=== PATIENT | male | born 1970 | race Caucasian/White ===

== ENCOUNTER → 2017-12-22 | Outpatient (CLI) | payer OTHER | LOC: FIMAGING 14:27 | PROVIDERS: ATTEND Internal Medicine | DX: M51.36 Other intervertebral disc degeneration, lumbar region (principal); M53.3 Sacrococcygeal disorders, not elsewhere classified ==

== ENCOUNTER 2018-12-25 02:21 | Inpatient (IN) | payer OTHER ==
[2018-12-25] MEDS ORDERED: NS 1,000 ML IV ONE (02:26)
[2018-12-25 03:04] LABS: PLATELET COUNT 103 10^3/uL (150-400)
[2018-12-25 03:16] LABS: INR 4.71 (0.83-1.16); PROTIME(PATIENT) 41.8 SEC (12.0-15.0)
--- NOTE | 2018-12-25 03:28 | EDPHY ---
H & P Stated Complaint: Seizure Time Seen by Provider: 12/25/18 02:25 HPI/ROS: HPI The patient presents with seizure which occurred just prior to arrival. The patient had seizure activity which was initially witnessed by his who called 911. He then had a 2nd seizure when EMS arrived. He was treated with Versed for this which improved his seizure. He has no prior history of seizure. These seizures appeared to be tonic clonic, lasting for several minutes. The patient had a fall earlier in the day in which he tripped and fell and injured his left shoulder. 911 was called, however the patient declined transport to the ER. He got into bed and since then has been having some back pains which he describes throughout his back. He says he is a daily drinker drinking 6 large shots of whiskey every day. His last drink was last night at 10:00 p.m.. REVIEW OF SYSTEMS 10 systems were reviewed and negative with the exception of the elements mentioned in the history of present illness. 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 PHYSICAL General Appearance: Tired appearing Eyes: Pupils equal and round, scleral icterus is present ENT, Mouth: Mucous membranes dry, gingiva are pale Respiratory: There are no retractions, lungs are clear to auscultation Cardiovascular: Tachycardic rate and regular rhythm Gastrointestinal: Abdomen is soft and non-tender, no masses, bowel sounds normal, multiple areas of excoriation throughout his abdomen Neurological: A&O, moves all extremities, no tongue wag or hand tremor Skin: Warm and dry, jaundiced, there are ecchymoses throughout his body most prominently on his anterior left shoulder Musculoskeletal: Neck is supple non tender Extremities: symmetrical, full range of motion Psychiatric: Patient is oriented X 3, there is no agitation Source: Patient, Family, EMS Exam Limitations: Clinical condition - Personal History Current Tetanus/Diphtheria Vaccine: Unsure Current Tetanus Diphtheria and Acellular Pertussis (TDAP): Unsure - Medical/Surgical History Hx Asthma: No Hx Chronic Respiratory Disease: No Hx Diabetes: No Hx Cardiac Disease: No Hx Renal Disease: No Hx Cirrhosis: No Hx Alcoholism: No Hx HIV/AIDS: No Hx Splenectomy or Spleen Trauma: No Other PMH: htn, depression - Social History Smoking Status: Current every day smoker Constitutional: Initial Vital Signs Temperature (C) 34.3 C L 12/25/18 02:25 Heart Rate 119 H 12/25/18 02:25 Respiratory Rate 40 H 12/25/18 02:25 Blood Pressure 80/59 L 12/25/18 02:25 O2 Sat (%) 99 12/25/18 02:25 O2 Delivery Mode Room Air Allergies/Adverse Reactions: No Known Allergies Allergy (Unverified 12/25/18 02:24) Home Medications: Medication Instructions Recorded Lisinopril 12/25/18 Prozac 20 MG (*) 12/25/18 Medical Decision Making - Diagnostics EKG Interpretation: EKG: Complete interpretation has been separately recorded in the [facility] archive. Summary impression: Sinus tachycardia with QT prolongation Imaging Results: Ultrasound right upper quadrant demonstrates heterogeneous increased hepatic echogenicity suggests hepatic steatosis with nodular surface contour suspicious for cirrhosis, reversal of the portal venous flow and trace ascites suggest portal hypertension, interpreted by direct Radiology. CT head and C-spine without contrast are unremarkable., interpreted by direct Radiology. Differential Diagnosis: 48-year-old man with history of hypertension, alcohol abuse presents from home with witnessed seizure today twice. Given Versed by paramedics with improvement in his seizures. Here, tachycardic, hypotensive, hypothermic, with overt signs of liver failure with jaundice. He does not appear to be in severe alcohol withdrawal at this point, does not have a tremor. I suspect he had an alcohol withdrawal seizure. I suspect his heavy alcohol abuse has but him into fulminant liver failure. Here, he is given IV fluids. Hemoglobin is quite low at 5. This could be related to his liver failure verses GI bleed. I consented him for blood transfusion. Rectal exam revealed light brown stool, not concerning for GI bleed. I suspect he has longstanding alcohol abuse, leading to cirrhosis, causing anemia and when he stopped drinking yesterday he developed alcohol withdrawal seizures. I have consulted with Dr. Florentino of the hospitalist service and we will admit the patient to the Step-Down Unit. I have discussed the diagnosis and treatment plan with the patient and his mother at the bedside. Critical Care Time: CRITICAL CARE Critical care time spent by me, Dr. Matos, exclusively with this patient was 30 minutes, exclusive of PA time and exclusive of procedures. The organ system at risk was cardiac and I gave IV fluids, blood transfusion to prevent worsening of the patients condition. - Data Points Laboratory Results: Laboratory Results 12/25/18 02:30 12/25/18 02:30 12/25/18 12/25/18 12/25/18 03:57 03:00 02:30 WBC RBC Hgb Hct MCV MCH MCHC RDW Plt Count MPV Neut % (Auto) Lymph % (Auto) [place] % (Auto) Eos % (Auto) Baso % (Auto) Nucleat RBC Rel Count Absolute Neuts (auto) Absolute Lymphs (auto) Absolute Monos (auto) Absolute Eos (auto) Absolute Basos (auto) Absolute Nucleated RBC Immature Gran % Immature Gran # Platelet Estimate Polychromasia Oval Macrocytes Echinocytes Smear Review By PT INR APTT Sodium Potassium Chloride Carbon Dioxide Anion Gap BUN Creatinine Estimated GFR Glucose Calcium Magnesium 1.7 mg/dL mg/dL (1.6-2.3) Total Bilirubin Conjugated Bilirubin Unconjugated Bilirubin GGT AST ALT Alkaline Phosphatase Ammonia 112.0 uMOL/L H uMOL/L (9.0-30.0) Total Protein Albumin TSH 12.000 uIU/mL H uIU/mL (0.465-4.680) Ethyl Alcohol Patient ABO/Rh AB POSITIVE Antibody Screen NEGATIVE Crossmatch IS Only See Detail 12/25/18 12/25/18 12/25/18 02:30 02:30 02:30 WBC 12.61 10^3/uL H 10^3/uL (3.80-9.50) RBC 1.45 10^6/uL L 10^6/uL (4.40-6.38) Hgb 5.4 g/dL L* g/dL (13.7-17.5) Hct 17.7 % L* % (40.0-51.0) MCV 122.1 fL H fL (81.5-99.8) MCH 37.2 pg H pg (27.9-34.1) MCHC 30.5 g/dL L g/dL (32.4-36.7) RDW 16.8 % H % (11.5-15.2) Plt Count 103 10^3/uL L 10^3/uL (150-400) MPV 13.4 fL H fL (8.7-11.7) Neut % (Auto) 76.9 % H % (39.3-74.2) Lymph % (Auto) 12.5 % L % (15.0-45.0) [place] % (Auto) 9.3 % % (4.5-13.0) Eos % (Auto) 0.2 % L % (0.6-7.6) Baso % (Auto) 0.1 % L % (0.3-1.7) Nucleat RBC Rel Count 0.5 % H % (0.0-0.2) Absolute Neuts (auto) 9.70 10^3/uL H 10^3/uL (1.70-6.50) Absolute Lymphs (auto) 1.58 10^3/uL 10^3/uL (1.00-3.00) Absolute Monos (auto) 1.17 10^3/uL H 10^3/uL (0.30-0.80) Absolute Eos (auto) 0.02 10^3/uL L 10^3/uL (0.03-0.40) Absolute Basos (auto) 0.01 10^3/uL L 10^3/uL (0.02-0.10) Absolute Nucleated RBC 0.06 10^3/uL H 10^3/uL (0-0.01) Immature Gran % 1.0 % % (0.0-1.1) Immature Gran # 0.13 10^3/uL H 10^3/uL (0.00-0.10) Platelet Estimate DECREASED L (ADEQ) Polychromasia 2+ H Oval Macrocytes 3+ H Echinocytes 2+ H Smear Review By Pending PT 41.8 SEC H SEC (12.0-15.0) INR 4.71 H (0.83-1.16) APTT 44.4 SEC H SEC (23.0-38.0) Sodium 137 mEq/L mEq/L (135-145) Potassium 5.1 mEq/L mEq/L (3.5-5.2) Chloride 104 mEq/L mEq/L (97-110) Carbon Dioxide 7 mEq/l L* mEq/l (22-31) Anion Gap 26 mEq/L H mEq/L (6-14) BUN 16 mg/dL mg/dL (7-23) Creatinine 2.0 mg/dL H mg/dL (0.7-1.3) Estimated GFR 36 Glucose 150 mg/dL H mg/dL (70-100) Calcium 8.0 mg/dL L mg/dL (8.5-10.4) Magnesium Total Bilirubin 9.1 mg/dL H mg/dL (0.1-1.4) Conjugated Bilirubin 3.1 mg/dL H mg/dL (0.0-0.5) Unconjugated Bilirubin 6.0 mg/dL H mg/dL (0.0-1.1) GGT 66 IU/L H IU/L (10-59) AST 149 IU/L H IU/L (17-59) ALT 62 IU/L IU/L (21-72) Alkaline Phosphatase 98 IU/L IU/L (38-126) Ammonia Total Protein 6.2 g/dL L g/dL (6.3-8.2) Albumin 2.4 g/dL L g/dL (3.5-5.0) TSH Ethyl Alcohol < 10 mg/dL mg/dL (0-10) Patient ABO/Rh Antibody Screen Crossmatch IS Only Medications Given: Lorazepam (Ativan Injection) 0 mg IVP Q1H PRN; Protocol PRN Reason: Alcohol Withdrawal w/IV access Stop: 06/23/19 05:32 Last Admin: 12/25/18 06:19 Dose: 2 mg Discontinued Medications Sodium Chloride (Ns) 1,000 mls @ 0 mls/hr IV EDNOW ONE; Wide Open PRN Reason: Protocol Stop: 12/25/18 02:27 Last Admin: 12/25/18 02:33 Dose: 1,000 mls Departure - Departure Disposition: [facility] Inpatient Acute Clinical Impression: Hepatic failure due to alcoholism, Seizure Anemia Qualifiers: Anemia type: unspecified type Qualified Code(s): D64.9 - Anemia, unspecified Condition: Critical
[2018-12-25] MEDS ORDERED: ONDANSETRON 4 MG/2 ML VIAL IVP PRN (04:05)
[2018-12-25] MEDS ORDERED: ONDANSETRON DISINTEGRATING 4 MG TAB PO PRN (04:05)
[2018-12-25] MEDS ORDERED: LORazepam 2 MG/ML INJ IVP PRN (04:05)
[2018-12-25] MEDS ORDERED: PROMETHAZINE HCL 25 MG/ML INJ IVP PRN (04:05)
[2018-12-25] MEDS ORDERED: diphenhydrAMINE 25 MG CAP PO PRN (04:05)
[2018-12-25] MEDS ORDERED: ALBUTEROL 3 ML DEYVIAL IH PRN (04:05)
[2018-12-25] MEDS ORDERED: FLUMAZENIL 0.5 MG/5 ML MDV IVP PRN (05:33)
[2018-12-25] MEDS ORDERED: NS 1,000 ML IV SCH (05:45)
[2018-12-25] MEDS: LORazepam 2 MG/ML INJ IVP PRN ×4 (06:19→10:59)
--- NOTE | 2018-12-25 06:52 | GHP ---
[f rep st] HISTORY AND PHYSICAL DATE OF ADMISSION: 12/25/2018 SOURCE: Patient able to provide history, appears reliable. EMR was reviewed and case discussed with ED provider. CHIEF COMPLAINT: Seizure. HISTORY OF PRESENT ILLNESS: This is a pleasant 48-year-old gentleman with past medical history significant for hypertension, depression, alcohol dependence, who presents to the emergency department today after his called 911 following a witnessed seizure. Patient had tonic-clonic type activity. She is not currently at bedside to supplement details. Case was discussed with ED provider. The patient does have a history of drinking 6 large glasses of whiskey on a daily basis. Last intake was approximately 10 p.m. EMS arrived and patient had a 2nd witnessed seizure. He was given Versed with no subsequent seizure activity. The patient is complaining of acute on chronic back pain. He lists a history of injury. No numbness, tingling. No urinary retention or fecal incontinence. Patient reports that he has been feeling unwell, particularly in the last several days. Yesterday, he spent most of the day lying in bed, which he thinks is exacerbating his back pain. The patient reports that he has been having some shortness of breath with increasing pain. He denies any chest pain, palpitations, lightheadedness. Patient denies any melena or hematochezia. He has not had any abdominal pain. The patient reports he has not noticed any jaundice or scleral icterus. Patient's mother, who is at bedside, notes that she did not appreciate any jaundice until it was pointed out today. REVIEW OF SYSTEMS: GENERAL: Patient denies any fevers, chills, or recent illness until the last several days. He has been noticing fatigued. SKIN: As noted above. Patient did not appreciate any jaundice. RESPIRATORY: Patient denies any shortness of breath or cough. CV: Patient denies any chest pain, palpitations. ABDOMEN: No distention, abdominal pain, diarrhea, melena, hematochezia. : No dysuria or hematuria. MUSCULOSKELETAL: Back pain as noted per HPI. NEURO: Patient denies any numbness, tingling. No headache. No changes in vision. He does wear glasses. PSYCH: Patient without any SI or HI. Remainder 10 systems reviewed and negative, except as noted above. ALLERGIES: No known drug allergies. HOME MEDICATIONS: As listed in EMR, fluoxetine 20 mg and lisinopril. PAST MEDICAL HISTORY: Significant for benign essential hypertension, depression , alcohol dependence, remote history of MRSA. PAST SURGICAL HISTORY: Significant for a leg surgery many years ago. FAMILY HISTORY: Negative for any chronic medical issues, hypertension. SOCIAL HISTORY: Patient is , lives with his and 2 children. 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 CODE STATUS: Full. PHYSICAL EXAMINATION: VITAL SIGNS: Upon arrival to the emergency department, blood pressure is 80/59, heart rate 119, respiratory rate 40, O2 saturation 99% on room air, temperature 34.3. VITAL SIGNS: Current vital signs available: Blood pressure is 106/56, heart rate is 104, respiratory rate 24, O2 sat is 100 % on room air with temperature of 36. GENERAL: No acute distress. Patient is lying quietly in bed awake. His mother is at bedside. Patient does appear chronically ill and older than stated age. He has jaundice. HEAD: Normocephalic. Patient does have some abrasions on his face. He has some dried blood bridge of his nose. EYES: Extraocular muscles are grossly intact. Pupils equal, round, and slightly decreased reactivity to light bilaterally, but symmetric. No scleral icterus or conjunctival injection. Glasses in place. ENT: Mucous membranes appear quite dry and pale. Dentition in fair condition. No nasal discharge. NECK: Supple. Trachea midline. CV: Tachycardic, distant heart sounds limiting exam for murmur. No chest wall tenderness to palpation. RESPIRATORY: Patient with some mild increased work of breathing and use of accessory muscles. He is tachypneic into the 20s, but he is in no acute distress. He is lying quietly in bed. ABDOMEN: Obese, soft , nontender to palpation. No rebound, guarding, or masses appreciated. No hepatomegaly. : No suprapubic tenderness to palpation. No Queen catheter in place. MUSCULOSKELETAL: Patient with back pain and some decreased range of motion movement, but able to turn on his back from the side. NEURO: Grossly nonfocal. No facial drooping. Moves all extremities. Patient without a tremor currently. Sensation is intact to lower extremities bilaterally and symmetric. PSYCH: Patient does appear a little bit anxious. He is awake, alert and interactive. He is otherwise pleasant and cooperative. Thought process, content and questions are appropriate. LABORATORY STUDIES: WBC is 12.61, hemoglobin and hematocrit are 5.4 and 17.7, MCV is 122.0, platelet count is 103, neutrophil percent 76.9, 1% granulocytes. PT is 41.8, INR is 4.71, PTT is 44.4. Sodium is 137, potassium is 4.1, chloride is 104, CO2 is 7, anion gap of 26, BUN is 16, creatinine is 2.0, GFR is 36, glucose is 150, calcium 8.0, magnesium 1.7, total bilirubin is 9.1, conjugated bilirubin 3.1, ALT is 62, AST is 149, GT 266, alkaline phosphatase is 98, ammonia is 112, total protein 6.2, albumin is 2.4. TSH is pending. Ethyl alcohol level is less than 10, negative. EKG was reviewed by myself showing sinus tachycardia in the one-teens. QTc is 554. CT cervical spine, CT head: Preliminary reports are not available, per provider negative. Shoulder imaging reviewed, no acute fractures appreciated, report is still pending. Abdominal ultrasound report is still pending. This is a 48-year-old gentleman with a history of hypertension, depression, alcohol dependence, who presents to the ED following a seizure at home, witnessed. 1. Acute liver failure. MELD score calculated at 39 based on current labs. The patient's Maddrey's Discriminant Function score 132.8 points with poor prognosis at a score of greater than 32. The patient may benefit from addition of steroids; however, at this point, the patient is currently being acutely treated with fluids and transfusion. Plan for repeat labs shortly after the 2nd unit and will reassess. GI consultation in the morning as per day team. Immediate lifelong alcohol cessation was advised. Severity of patient's liver disease as well as involvement of the renal system was briefly discussed with the patient. I had not yet calculated his MELD score to additionally discuss with the patient his increased risk for morbidity mortality at this point. There are plans for followup laboratory studies following administration of his additional IV fluids and transfusion. The patient will be started on CIWA protocol and will receive thiamine, multivitamins and folic acid. symptomatic. The patient is in process of receiving 2 units of PRBCs. Repeat hemoglobin and hematocrit following the 2nd unit has been requested. Coagulopathy due to liver disease. INR is quite elevated, but patient without any evidence of active bleeding at this time. We will check an occult stool. May require additional evaluation by GI during this hospital stay. We will hold off on FFP and no need for platelet transfusion at this point. 2. Hypotension due to hypovolemia and anemia, which has improved after IV fluids and transfusion, which is in process. Patient with a history of hypertension on outpatient basis. 3. Thrombocytopenia in the setting of liver disease. Continue to monitor. No active bleeding as noted above. 4. Acute renal failure, is likely prerenal, may be a component of acute tubular necrosis as patient does have lisinopril on his medication list, but most likely due to hypotension and hypovolemia with decreased perfusion. Continue with treatment plan as noted above and repeat BMP later in the morning. 5. Leukocytosis. No evidence of active bleeding. Patient was without any fevers. Suspect this is due to patient's acute condition with liver disease, anemia, acute renal failure, etc. Will monitor closely. Hold off on antibiotics at this time. 6. Transaminitis and hyperbilirubinemia in setting of acute liver failure. We will continue to monitor. 7. Metabolic acidosis due to above. 8. Hyperglycemia as nonfasting lab. Will continue to monitor. No previous history of issues with blood sugars. 9. Hyperammonemia in setting of liver failure. His mentation is actually doing very well. We will hold off on lactulose for the moment. 10. Hypoalbuminemia due to liver disease. 11. Elevated TSH. We will plan to check a free T4. 12. Fluid/electrolyte/nutrition. IV fluids to continue after PRBCs. Will monitor the patient's fluid status closely. Currently does not appear to be third-spacing and he is quite dry. Electrolytes: Will monitor with repeat BMP following his transfusion. Diet: Cardiac, low-salt. No need for fluid restriction at this time. Patient is dehydrated. By history, no complaint of melena or hematemesis. Will not leave him n.p.o. for now. 13. Prophylaxis. Sequential compression devices as tolerated. Patient with INR greater than 4 at this time. Monitor for any bleeding. No anticoagulation. 14. Code status. Full. DISPOSITION: Patient admitted to inpatient status on SDU for close monitoring in setting of severe anemia, acute liver failure and acute renal insufficiency. /[id number]/MODL MTDD
--- NOTE | 2018-12-25 07:11 | CPEKG ---
Test Reason : OPEN Blood Pressure : / mmHG Vent. Rate : 117 BPM Atrial Rate : 118 BPM P-R Int : 092 ms QRS Dur : 088 ms QT Int : 389 ms P-R-T Axes : 081 069 055 degrees QTc Int : 543 ms Sinus tachycardia Prolonged QT interval Confirmed by Hue Matos ([id number]) on 12/25/2018 7:11:04 AM Referred By: PHYSICIAN ED Confirmed By:Hue Matos
[2018-12-25] MEDS ORDERED: FAMOTIDINE 20 MG/NACL 50 ML IV SCH ×3 (09:00→21:00)
[2018-12-25] MEDS ORDERED: THIAMINE HCL 500 MG in NS 100 ML IV SCH (09:00)
[2018-12-25] MEDS ORDERED: LACTULOSE 20 GM/30 ML UDCUP PO SCH (09:00)
--- NOTE | 2018-12-25 09:33 | HOSPPROG ---
Hospitalist Progress Note Assessment/Plan: 48yo M who had a seizure found to be in liver, kidney and respiratory failure. #Acute liver failure: Suspect alcoholic hepatitis. DF score >140. MELD 39, conferring 52% 3month mortality. No portal/hepatic thrombus on US although limited study. - Methylpred 40mg IV daily, daily LFT/INR - Check acute hep panel, APAP level, anti-smooth muscle Ab, EBV and CMV Abs - Consulted GI #Acute renal failure with hyperkalemia: Worsening despite volume resuscitation. Concern for HRS. - S/p calcium, bicarb, insulin, sodium zirconium - Consulted renal. Temporary dialysis cath placed by surgery this PM. Plan to initiate CRRT as soon as able #Macrocytic anemia: Initially responded to transfusion but dropped again. No e/ o bleeding, BUN low makes variceal bleed less likely. ? hemolysis. No schistos on initial smear makes DIC less likely. - Check LDH, haptoglobin, fibrinogen, retic count - Ordered 2 more units PRBC #Thrombocytopenia: Likely r/t liver. TTP on differential but unlikely with plts >100k. - D/w hematology who will evaluate patient #Acute respiratory failure - Now intubated, pulm managing ventilator and sedation #Acute metabolic encephalopathy: D/t liver failure (ammonia 112). Managing as above. #EtOH abuse: Reportedly was cutting down. MCV 122 indicates otherwise. - CIWA protocol #Hypotension: Suspect due to increase NO from liver failure. - Levophed PRN (has triple lumen) #Seizure: Likely precipitated by etoh withdrawal and liver failure. - Head CT negative #Coagulopathy - Ordered 2 units FFP, 10mg IV vitamin K #Anion gap metabolic acidosis: Due to kidney failure. 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 #H/o hypothyroidism: TSH elevated but in setting of acute illness. Free T4 pending. #PVCs: Followed by Dr Hendrickson. 46k in 24 hours on holter. Prescribed diltiazem but not taking. #Depression/anxiety VTE ppx: SCDs Code: full POA: Dispo: Remain in ICU I spent a total of 60 minutes of critical care time involving this patient. Subjective: Awake but confused. Tachypneic. D/w and brother at bedside. Objective: Vital Signs Temp Pulse Resp BP Pulse Ox 36.5 C 99 32 H 91/50 L 100 12/25/18 09:00 12/25/18 09:00 12/25/18 09:00 12/25/18 09:00 12/25/18 09:00 12/24/18 12/25/18 12/26/18 05:59 05:59 05:59 Intake Total 1525 Balance 1525 PT 41.8 SEC (12.0-15.0) H 12/25/18 02:30 INR 4.71 (0.83-1.16) H 12/25/18 02:30 - Physical Exam Constitutional: no apparent distress Eyes: PERRL, icteric sclera Ears, Nose, Mouth, Throat: dry mucous membranes Cardiovascular: tachycardia, No edema Respiratory: respiratory distress, other (tachypneic) Gastrointestinal: normoactive bowel sounds, soft, non-tender abdomen, no palpable masses, distension Genitourinary: no bladder fullness, no bladder tenderness, no renal bruits Skin: other (jaundiced) Neurologic: other (not oriented) Psychiatric: encephalopathic ICD10 Worksheet Patient Problems: Problems Problem Status Onset Anemia Acute Hepatic failure due to alcoholism Acute Seizure Acute
--- NOTE | 2018-12-25 09:48 | PDMN ---
Medical Necessity Medical necessity: [facility] [place] M570 Liver Disease Complications, A-2 days: 48 yo w/ witnessed seizure in known setting etoh abuse. Eval reveals acute liver and renal fx. Pt is hypotensive SBG 80s, tachy 110s, persistent tachypnea, H/H 5/17 , plt 103, elevated WBC, total bili 9.1, creat 2. MELD score 39, Maddrey's Discriminant Function score 132.8. IVF, transfuse PRBC. CIWA protocol. GI consult. Pt will require>2MN for ongoing management of the above. Admit IP status SDU.
--- NOTE | 2018-12-25 11:42 | GCON ---
[f rep st] CONSULTATION [facility]RL[facility] CAREGIVER CONSULTATION REASON FOR ADMISSION: Seizure, acute alcohol withdrawals, liver failure. HISTORY OF PRESENT ILLNESS: The patient is a 48-year-old white male with a past medical history of h ypertension, depression, and alcoholism. He was brought in after undergoing a seizure. He has a his tory of excessive alcohol use, drinking up to 6 glasses of whiskey per day. He was brought via EMS t o the emergency room and subsequently admitted to the intensive care unit. He is currently on CIWA p rotocol and markedly confused. All history is gleaned from the medical record. Apparently, he lost his job approximately a year ago. The patient's daughter is also been going undergoing some medical issues requiring hospitalization. REVIEW OF SYSTEMS: Ten-point review of systems was attempted, but unable to be performed, secondary to patient's encephalopathy. PAST MEDICAL HISTORY: Significant for hypertension, depression, and a distant history of methicillin -resistant Staph aureus. FAMILY HISTORY: Noncontributory. SOCIAL HISTORY: Again, alcoholism. No history of tobacco use. He is , has good family suppo rt. PHYSICAL EXAM: VITAL SIGNS: Blood pressure 150/57, pulse is 100, respirations 14, temperature 36.5, oxygen saturation 100% on room air. GENERAL: He is a well-developed 48-year-old male who is mildly jaundiced. HEENT: Eyes: PAT, EOMI. Throat exam is deferred. NECK: Supple. No cervical adenopa thy. HEART: Regular rate and rhythm without murmurs, rubs, or gallops. LUNGS: Diminished breath s ounds, but no wheeze. ABDOMEN: Soft, but mildly distended. Bowel sounds are diminished. EXTREMITI ES: No clubbing, cyanosis, or edema. LABORATORY/IMAGING: White count is 12.6, hemoglobin 5.4, hematocrit 17, platelet count is 103. INR is 4.71. Sodium 137, potassium 5.1, chloride 104, CO2 is 7, BUN is 16, creatinine is 2, glucose is 1 50. AST is elevated at 149, ALT is 62. Ammonia level is 112. TSH is elevated at 12. Total bilirub in is 9.1. Abdominal ultrasound shows steatosis of the liver, a small amount of ascites. There is no obstructio n. No gallbladder obstruction or stones present. IMPRESSION: 1. Alcoholism. 2. Acute alcohol withdrawals. 3. Acute liver injury. This is severe with a very high MELD score. 4. Anemia, status post transfusion. 5. Thrombocytopenia. 6. Acute liver injury as seen by an elevated transaminitis. 7. Elevated thyroid-stimulating hormone. 8. Metabolic acidosis, secondary to above. 9. Acute renal failure. This is likely prerenal. RECOMMENDATIONS: 1. Agree with transfusion. 2. Agree with GI consult. 3. Aggressive fluid management. 4. Monitor laboratories closely. 5. Agree with lactulose. 6. Patient is critical. 7. Case discussed with the hospitalist, as well as family. /[id number]/MODL
[2018-12-25] MEDS ORDERED: CALCIUM GLUCONATE 2 GM in D5W 50 ML IV ONE ×2 (12:03→23:00)
[2018-12-25] MEDS ORDERED: [UNRECOGNIZED DRUG - OTHER] IV ONE (12:04)
[2018-12-25] MEDS ORDERED: PROTOCOL MAGNESIUM 1 DOSE IV PRN (12:07)
[2018-12-25] MEDS: SODIUM ZIRCONIUM CYCLOSILICATE 10 GM PACKET PO SCH ×2 (12:12→17:09)
[2018-12-25] MEDS ORDERED: MAGNESIUM SULF 1 GM/DEXTROSE 100 ML IV ONE (12:16)
[2018-12-25] MEDS ORDERED: ALBUMIN 25% 100 ML SOLN IV ONE (12:22)
[2018-12-25] MEDS ORDERED: NA BICARBONATE 50 MEQ/50 ML VIAL IV ONE (12:30)
[2018-12-25] MEDS: ALBUMIN 25% 100 ML IV SCH ×2 (12:52→23:08)
[2018-12-25] MEDS ORDERED: D5W IV SCH (13:00)
[2018-12-25] MEDS ORDERED: METHYLPREDNISOLONE SOD SUCC IV SCH (13:00)
[2018-12-25] MEDS ORDERED: prednisoLONE 15 MG/5 ML ORAL UD LIQ PO SCH (13:00)
[2018-12-25] MEDS ORDERED: INSULIN REGULAR HUMAN 100 UNIT/ML UNIT IVP ONE (13:03)
[2018-12-25] MEDS ORDERED: D50W 25 GM/50 ML SYR IVP ONE (13:03)
[2018-12-25] MEDS ORDERED: ALTEPLASE 2 MG VIAL IVP PRN (13:11)
[2018-12-25] MEDS ORDERED: PHYTONADIONE 10 MG in NS 50 ML IV ONE (13:12)
[2018-12-25] MEDS ORDERED: methylPREDNISolone SOD SUCC 40 MG/ML VIAL IVP SCH (13:15)
[2018-12-25] MEDS: NOREPINEPHRINE BITARTRATE 4 MG in NS 500 ML IV SCH ×2 (13:49→19:45)
[2018-12-25 14:26] LABS: HEPATITIS A ANTIBODY IGM (BCH) NEGATIVE (NEGATIVE); HEPATITIS B CORE AB IGM NEGATIVE (NEGATIVE); HEPATITIS B SURFACE ANTIGEN NEGATIVE (NEGATIVE); HEPATITIS C ANTIBODY TOTAL NEGATIVE (NEGATIVE)
--- NOTE | 2018-12-25 14:42 | SOAPPROG ---
SOAP Progress Note Assessment/Plan: Assessment: Nephrology consult see dictation # [id number] I discussed my recs with hosptialist and ICU Team pager [phone] Plan: 12/25/18 14:42 12/25/18 15:12 Objective: Vital Signs Temp Pulse Resp BP Pulse Ox 36.8 C 119 H 38 H 108/42 L 100 12/25/18 13:00 12/25/18 14:00 12/25/18 14:00 12/25/18 14:00 12/25/18 14:00 12/24/18 12/25/18 12/26/18 05:59 05:59 05:59 Intake Total 1525 Balance 1525 PT 41.8 SEC (12.0-15.0) H 12/25/18 02:30 INR 4.71 (0.83-1.16) H 12/25/18 02:30 ICD10 Worksheet Patient Problems: Problems Problem Status Onset Anemia Acute Hepatic failure due to alcoholism Acute Seizure Acute
[2018-12-25] MEDS ORDERED: MIDAZOLAM 2 MG/2 ML VIAL IVP ONE (14:45)
[2018-12-25] MEDS ORDERED: ROCURONIUM 100 MG/10 ML VIAL IV ONE (14:45)
[2018-12-25] MEDS ORDERED: fentaNYL 100 MCG/2 ML INJ IVP PRN (14:58)
--- NOTE | 2018-12-25 15:18 | ASMTCMCOM ---
CM Note CM Note Notes: Pt is a 48 yo M presents with Hepatic failure, anemia, etoh withdrawl. Pt care discussed in rounds with MD and RN. Pt's is at bedside as well as other family members. Pt is going to OR to get dialysis cath, nephrology consulted and following. CM to follow as pt progresses. Plan: TBD Date Signed: 12/25/2018 03:17 PM Electronically Signed By:LIDYA Verma
[2018-12-25] MEDS ORDERED: ROCURONIUM 100 MG/10 ML VIAL ONE (15:24)
--- NOTE | 2018-12-25 15:24 | GPN ---
[f rep st] PROCEDURE NOTE PROCEDURE: Intubation. INDICATION: Respiratory failure and airway protection. ANESTHESIA: Patient was given Versed 2 mg, rocuronium 0.6 mg/kg. DESCRIPTION OF PROCEDURE: Procedure was performed in the intensive care unit using continuous pulse ox, EKG, and blood pressure monitoring procedure. Via GlideScope, patient was intubated with a #7.5 endotracheal tube and taped at 24 cm at the lip. Tracheal position was confirmed via capnograph. Th e patient tolerated the procedure well. There were no apparent complications. Portable chest x-ray has been called for. /[id number]/MODL
[2018-12-25] MEDS ORDERED: MAGNESIUM SULF 2 GM/WATER 50 ML IV PRN (16:00)
[2018-12-25] MEDS ORDERED: PANTOPRAZOLE SODIUM 40 MG VIAL IVP SCH (16:00)
[2018-12-25] MEDS ORDERED: POTASSIUM Cl (KCl) 50 ML IV PRN (16:00)
[2018-12-25] MEDS ORDERED: SODIUM CITRATE 4% 5 ML in SYRINGE 0 ML DIAL PRN (16:00)
[2018-12-25] MEDS ORDERED: SODIUM PHOS 20 MM in D5W 250 ML IV PRN (16:00)
[2018-12-25] MEDS ORDERED: PRE-DILUTION FILTER SET 100 MISC PRN (16:00)
[2018-12-25] MEDS ORDERED: ACCESSORY DRAIN 1 EA BAG MISC PRN (16:00)
--- NOTE | 2018-12-25 16:24 | GCON ---
[f rep st] CONSULTATION INPATIENT NEPHROLOGY CONSULTATION DATE OF CONSULTATION: 12/25/2018 REFERRING PHYSICIAN: Dakota Kessler MD REASON FOR CONSULTATION: Acute kidney injury. HISTORY OF PRESENT ILLNESS: The patient is a 48-year-old man with a history of hypertension, alcohol abuse, who was admitted to the hospital late last evening with a witnessed seizure at home. He did have a witnessed seizure by EMS on their arrival, and was given Versed. He has since continued to worsen on arrival with increasing somnolence, and he is now being emergently intubated. I have been asked to see the patient for his worsening kidney function. His creatinine on admission was 2, and it is up to 2.9 on last check. He has made very little urine output. He is having significant coagulopathy with an INR of 4.7 and a hemoglobin down to 5.2, low platelets. His potassium is up to 7.0 on his last labs. Currently, he is too confused and on BiPAP and unable to give any history, so most of this is obtained from discussing with his family as well as the ICU team and reviewing his charts. His family denies any known kidney history. They do note that he has been trying to cut back on his alcohol intake. They deny any recent fevers, nausea, vomiting, or diarrhea. REVIEW OF SYSTEMS: Again unable to obtain as patient is confused and on BiPAP. Discussing with his family, there were no fevers, nausea, vomiting, diarrhea, or shortness of breath. He did have 2 witnessed seizures at home prior to admission, but per their report, he was in his usual state of health as of Tuesday. PAST MEDICAL HISTORY: 1. Alcohol abuse. 2. Hypertension. 3. Depression. 4. Prior leg surgery. SOCIAL HISTORY: He is , has 2 children. He has not been working over the past year but previously worked in IT. Active alcohol use with approximately 6 glasses of whiskey a day. FAMILY HISTORY: No kidney disease in his family. MEDICATIONS: Outpatient medications include fluoxetine and lisinopril. Current medications include albumin IV q.6 hours, albuterol nebs, Pepcid 20 mg IV q.h.s., lactulose 20 g p.o. t.i.d., lorazepam as needed for withdrawal, methylprednisolone 40 mg IV daily, Lokelma 10 g p.o. t.i.d., Zofran p.r.n., thiamine 100 mg p.o. daily. IV normal saline at 100 cc an hour. PHYSICAL EXAM: VITAL SIGNS: His temperature is 36.8. His blood pressure is 108/42, his heart rate is 119, satting 100% on 35% FiO2 on BiPAP. GENERAL: He is acutely ill-appearing, confused, unable to give a history, on BiPAP, and visibly tachypneic. HEENT: Notable for scleral icterus. Mucous membranes are moist. NECK: Supple. LUNGS: Clear to auscultation bilaterally anteriorly, poor exam due to confusion. CARDIAC: Regular rate and rhythm. No rub. ABDOMEN: Soft. No tense ascites. EXTREMITIES: Plus edema bilaterally, warm. NEUROLOGIC: Again confused, unable to follow commands or give a history. LABS: His sodium is 135, potassium 7.0, chloride 103, bicarbonate 8, BUN 20, creatinine 2.7, glucose 123, calcium 7.4, ammonia 112, free T4 1.19, TSH 12.0, albumin 2.4, total protein 6.2, AST 149, ALT 62, alkaline phosphatase 98, GGT 66 , total bilirubin 9.1, conjugated bilirubin 3.1, unconjugated bilirubin 6.0, hemoglobin 5.2, hematocrit 16.3, white blood cell count 12.6, platelets 103. His INR is 4.7. His blood gas showed a pH of 7.37, pCO2 of 13, PO2 90, bicarbonate of 7. His alcohol level was less than 10. Tylenol level less than 10. Hepatitis A, B, and C were negative. His renal ultrasound was negative for any hydronephrosis or renal atrophy. His left kidney measured 10.5 cm, right kidney measured 9.2 cm. His ultrasound of the abdomen showed steatosis of the liver with a small amount of ascites, inability to exclude reverse flow in the portal vein. No gallstones or biliary obstruction. Head CT was negative. DISCUSSION AND DECISION-MAKING: The patient is a 48-year-old man with a history of alcohol abuse, hypertension, who now presents with 2 witnessed seizures, acute kidney injury, severe coagulopathy, acute alcoholic hepatitis, and acute hypoxic respiratory failure: 1. Acute kidney injury. It is unclear what his baseline renal function is, but per the family, there is no report of any known kidney disease. His creatinine on admission last night was 2 and it is now up to 2.7, and he is oliguric. Given the rapid rise in his creatinine as well as his severe hyperkalemia, we will proceed with renal replacement therapy. Given his severe coagulopathy, we are giving him FFP ,platelets and blood products. Hematology is also seeing him to review his peripheral smear and evaluate for the presence of schistocytes, hemolysis. Sepsis evaluation is underway. His liver disease is certainly contributing to his renal dysfunction and may have component of hepatorenal syndrome as well. Given his severe hyperkalemia and acidosis, Surgery will place a dialysis catheter and we will then initiate continuous renal replacement therapy (CRRT). Given his hemodynamic instability, we will use a nal-mucmmta-zpueu formulation given his liver disease. We will aim for ultrafiltration of net even at this point, given his hemodynamic instability. 2. Hyperkalemia. He is being managed medically with this so far. This is likely due to acute kidney injury in the setting of an LIBIA inhibitor. We will initiate CRRT once we have a line safely put in. 3. Metabolic acidosis. His last blood gas does appear compensated, but given his somnolence and worsening mental status, he is being emergently intubated. He will be started on CRRT which should help with this. We will follow lactate levels. His blood pressure is on the soft side, and we worry about sepsis, and we will follow his lactate levels. 4. Acute alcoholic hepatitis. He was actively drinking up to this admission. He is at risk for both spontaneous bacterial peritonitis as well as an aspiration pneumonia. Work up for his coagulopathy and hypotension is in process as sepsis possible. 5. Multi-organ system failure. Did have a lengthy discussion with his family. Given the severity of his illness and poor prognosis, we will continue with aggressive measures now, but have explained to him his overall prognosis. Thank you very much for the consultation. I have discussed my recommendations with the Critical Care team. Please do not hesitate to call with any questions. /[id number]/MODL MTDD
[2018-12-25] MEDS: DEXMEDETOMIDINE HCL 400 MCG in NS 100 ML IV SCH ×2 (17:03→21:10)
[2018-12-25] MEDS: LORazepam 2 MG/ML INJ IVP SCH ×2 (17:23→23:14)
--- NOTE | 2018-12-25 17:29 | GOP ---
[f rep st] OPERATIVE REPORT DATE OF OPERATION: 12/25/2018 SURGEON: Jaspal Mcdonald MD ERISA ATTORNEY: None. ANESTHESIA: Local. PREOPERATIVE DIAGNOSIS: Liver renal failure with hypotension. POSTOPERATIVE DIAGNOSIS: Liver renal failure with hypotension. PROCEDURE PERFORMED: Ultrasound-guided right femoral vein temporary dialysis catheter placement. FINDINGS: Successful placement, catheter both flushed and withdrew appropriately. SPECIMENS: None. ESTIMATED BLOOD LOSS: 5 cc. DESCRIPTION OF PROCEDURE: Patient is obtunded, consent was obtained from family. The right groin wa s prepped and draped in typical sterile fashion. I identified the vein using the ultrasound and succ essfully cannulated it with a single stick. I thread the guidewire, which thread without issue. I s erially dilated and successfully placed to the 16-[place]ux[place] 20 cm Mahurkar into the femoral vein. It wa s attached to the skin with an interrupted suture. A BioPatch was placed. The catheter both flushed and withdrew appropriately. Patient tolerated the procedure well without any complications. DRAINS: None. /[id number]/MODL
[2018-12-25] MEDS ORDERED: VASOPRESSIN 25 UNIT in NS 250 ML IV SCH (17:30)
--- NOTE | 2018-12-25 17:35 | GOP ---
[f rep st] OPERATIVE REPORT DATE OF OPERATION: 12/25/2018 SURGEON: Jaspal Mcdonald MD ASSISTANT PRESS OPERATOR: NONE ANESTHESIA: Local. PREOPERATIVE DIAGNOSIS: Liver failure, renal failure, and hypotension. POSTOPERATIVE DIAGNOSIS: Liver failure, renal failure, and hypotension. PROCEDURE PERFORMED: Ultrasound-guided left femoral vein triple-lumen catheter placement. FINDINGS: Successful cannulation and placement of a triple-lumen central venous catheter into the le ft femoral vein. SPECIMENS: None. ESTIMATED BLOOD LOSS: 5 cc. DESCRIPTION OF PROCEDURE: As the patient is obtunded, consent was obtained from family. A [facility] time-out was performed. The left groin was prepped and draped in typical sterile fa shion. I identified the vein using intraprocedural ultrasound and successfully cannulated it with a single stick. A guidewire was then fed within the vein and it was dilated, and the triple-lumen cent ral venous catheter was successfully placed within the lumen. It was attached to the skin with an in terrupted suture. A BioPatch was placed. The catheter both flushed and withdrew appropriately. Pat ient tolerated the procedure well without any apparent complication. DRAINS: None. /[id number]/MODL
[2018-12-25] MEDS ORDERED: DOPamine/DEXTROSE 400 MG/250 ML BAG IV ONE (18:06)
[2018-12-25] MEDS: [UNRECOGNIZED DRUG - OTHER] DIAL SCH ×2 (18:09→21:31)
[2018-12-25] MEDS: NS 1,000 ML MISC SCH ×2 (18:09→21:41)
[2018-12-25] MEDS: BGK 4/2.5 PRISMASATE 5,000 ML DIAL SCH ×2 (18:09→21:29)
--- NOTE | 2018-12-25 18:50 | GCON ---
[f rep st] CONSULTATION GASTROINTESTINAL INPATIENT CONSULTATION DATE OF CONSULTATION: 12/25/2018 REFERRING PHYSICIAN: Dakota Kessler MD CHIEF COMPLAINT: Abnormal liver tests. HISTORY OF PRESENT ILLNESS: I was kindly requested to see Juan by Dr. Dakota Kessler in consultation for a cc: of abnormal LFTs. He is a 48-year-old white male who presented to the emergency department today after a witnessed seizure. He drinks approximately 6 large glasses of whiskey on a daily basis. His last intake was approximately 10 p.m. the day prior. The patient reported that he had been feeling unwell, particularly in the last several days, and actually spent most of the day yesterday in bed. He denies any melena or hematochezia. He denies abdominal pain. Since being in the hospital, over a short time, he has developed renal failure, significant anemia, requiring intubation and mechanical ventilatory support, etc. PAST MEDICAL HISTORY: 1. As above. 2. Hypertension. 3. Depression. 4. Otherwise, noncontributory. OUTPATIENT MEDICATIONS: 1. Fluoxetine. 2. Lisinopril. INPATIENT MEDICATIONS: 1. Methylprednisolone 40 mg IV piggyback daily. 2. Pantoprazole 40 mg IV daily twice a day. ALLERGIES: No known drug allergies. SOCIAL HISTORY: He is . His 's name is Pilar. His mom's name is Jerome. FAMILY HISTORY: Negative for similar jaundice. REVIEW OF SYSTEMS: Positive for review of systems as per my HPI. Otherwise, complete review of systems is negative. PHYSICAL EXAM: CONSTITUTIONAL: Ill-appearing gentleman. Intubated. SKIN: Jaundiced. Warm. EYES: Pupils equal, round, reactive to light and accommodation. EAR, NOSE, MOUTH AND THROAT: ET tube in place. Moist. CARDIOVASCULAR: Normal S2, normal PMI. RESPIRATORY: On a ventilator. LUNGS: Clear to auscultation and percussion anteriorly. ABDOMEN: Profuse, without significant ascites. NEUROLOGIC: Unable to assess, due to sedation on the ventilator. The same is true for psychiatric and musculoskeletal. RECTAL: Garrett stool only on the gloved finger. LABORATORIES: Renal ultrasound which shows no hydronephrosis. Creatinine which has increased from 2 to 2.3 and now 2.9. Potassium that at increased to 7 and presently is 5.8. Hepatitis serologies, blood alcohol level and Tylenol level negative. Ammonia 112. Prothrombin time 41.8 with INR of 4.71. TSH 12 but normal free T4. Abdominal ultrasound showing fatty liver and only a small amount of ascites. No mention of cirrhosis. White count 12.6. Hematocrit on admission 17.7%, and after transfusion 23.6% and now back to 16.3%. MCV 122. Total bilirubin 9.1 with direct bilirubin of 3.1, AST 149 with an ALT of 62, albumin 2.4, alkaline phosphatase normal. ASSESSMENT: 1. Anemia. Suspect due to hemolysis. Clinically, no history of gastrointestinal bleeding, and rectal exam reveals just garrett stool only. His hematocrit went from 17% to 23% with transfusion, and now has quickly dropped back down to 16.3%. His elevated potassium, AST and unconjugated hyperbilirubinemia would also support hemolysis. With his rapidly worsening renal failure, wonder if this could represent hemolytic-uremic syndrome. 2. Renal failure. See above. 3. Liver disease. He is an alcoholic, so certainly there could be a component of alcoholic hepatitis. However, ultrasound does not necessarily show significant cirrhosis, there was no hepatic encephalopathy (NH3 levels are very nonspecific), no significant ascites and most of his elevated bilirubin is unconjugated. PLAN: 1. Agree with empiric steroids, in case there is an element of alcoholic hepatitis. 2. For now, I do not think there is a role for octreotide, unless Renal thinks this would be helpful. 3. I discussed his hemolysis and the possibility of hemolytic-uremic syndrome, etc., with the hospitalist. Further management, as per the hospitalist service. 4. Recommend nutrition. This can be given enterally, as no evidence of significant gastrointestinal bleeding; as per the hospitalist service. 5. Of note, I do not suspect any spontaneous bacterial peritonitis. He has only a small amount of ascites at best. Thank you for allowing me to help in the management this patient. Copy requested to: [facility] /[id number]/MODL [email or web address]
[2018-12-25 19:20] LABS: PLATELET COUNT 64 10^3/uL (150-400)
[2018-12-25] MEDS ORDERED: CHLORHEXIDINE GLUCONATE 15 ML UDL PO SCH (20:00)
[2018-12-25] MEDS ORDERED: NOREPINEPHRINE BITARTRATE 16 MG in NS 250 ML IV SCH (20:00)
[2018-12-25] MEDS ORDERED: PHENYLEPHRINE HCL 50 MG in NS 250 ML IV SCH (22:00)
--- NOTE | 2018-12-25 22:41 | HOSPPROG ---
Hospitalist Progress Note Assessment/Plan: Cross cover note: Called by nursing regarding patients status--noted to be on max doses of 3 pressors--NE, Vaso and dopa--with pressures by art line in the 80-90s systolic. Labs reviewed, notes including H&P and transportation sales consultant notes reviewed. Discussed with who noted no e/o TTP on review of blood smear. Repeat cxr/abd xray personally reviewed, nothing acute noted. Fibrinogen 60--crycopreciptate ordered. and mother of patient present at bedside. Discussed with them that currently patient does not appear to be responding to aggressive management --currently intubated, on CRRT without fluid removal and on 3 pressors. They were understandably very upset to hear that he may not survive this illness, explained to them that while we are trying everything currently, if despite that his heart were to stop, that CPR at that time would likely be futile and traumatic. They would like no resuscitation if he fails current measures--no CPR, no shocks. Called patients father Antony who is an MD in [place] and explained situation as well, he is flying here in the morning, does not think he can get here sooner. Explained that he has had a rapid decline during the day. > 60 min critical care time spent in review of labs, imaging, notes, bedside evaluation of patient, discussion with family and counseling regarding prognosis. Objective: Vital Signs Temp Pulse Resp BP Pulse Ox 35.5 C L 116 H 24 H 84/47 L 100 12/25/18 22:00 12/25/18 22:00 12/25/18 22:00 12/25/18 22:00 12/25/18 22:00 Laboratory Results 12/25/18 18:40 12/25/18 21:50 12/24/18 12/25/18 12/26/18 05:59 05:59 05:59 Intake Total 1525 1308.1 Output Total 75 Balance 1525 1233.1 PT 41.8 SEC (12.0-15.0) H 12/25/18 02:30 INR 4.71 (0.83-1.16) H 12/25/18 02:30 ICD10 Worksheet Patient Problems: Problems Problem Status Onset Hepatic failure due to alcoholism Acute Anemia Acute Seizure Acute
--- NOTE | 2018-12-25 23:01 | GCON ---
[f rep st] CONSULTATION HEMATOLOGY CONSULTATION DATE OF CONSULTATION: 12/25/2018 REASON FOR CONSULTATION: Anemia with coagulopathy. HISTORY OF PRESENT ILLNESS: The patient is a 48-year-old gentleman who is currently admitted to the intensive care unit. The patient was brought to the emergency department following a tonic-clonic ty pe seizure witnessed at home by his family. He has a history of alcohol abuse and drinks approximate ly 6 large glasses of whiskey on a daily basis. The patient was found to be anemic and coagulopathic . He was hypotensive and has been transferred to the ICU where his clinical status has deteriorated. He has evidence of acute liver failure, renal failure, altered mental status, and has required intu bation. CVVH has been started this evening. He has been given a total of 4 units of packed red cell s and 3 units of FFP. He has had no spontaneous bleeding. He has had abnormal bleeding at line site s. When seen this evening, there is no family at the bedside and the entire history is obtained via nursing and the chart. I have also discussed the case with Dr. Kessler of the hospitalist service. PAST MEDICAL HISTORY: 1. Hypertension. 2. Depression. 3. Alcohol abuse. PAST SURGICAL HISTORY: Leg surgery many years ago. Further details unknown. FAMILY MEDICAL HISTORY: Positive for hypertension. SOCIAL HISTORY: The patient lives locally. He is . He has 2 children. He is not currently working but previously worked in the [employer] industry. He has had a recent history of heavy alcohol use. REVIEW OF SYSTEMS: Unobtainable. PHYSICAL EXAM: GENERAL: The patient is in the ICU. He is intubated and sedated. He does not open eyes to voice. HEENT: Scleral icterus is present. SKIN: He has diffuse ecchymosis over his abdomi nal wall and extremities. HEART: Regular without murmur. LUNGS: Clear anteriorly. ABDOMEN: Mild ly distended. There is no hepatomegaly. There is no splenomegaly. Bowel sounds hypoactive. EXTREM ITIES: No extremity swelling or edema. Distal extremities appear adequately perfused. No evidence of epistaxis or mucosal bleeding. LABORATORY STUDIES: INR 4.71, PT 41.8, PTT 44.4. Fibrinogen is 60. CBC on admission, white count 12.6, hemoglobin 5.4, hematocrit 17.7, platelet count is 103,000. Afte r 4 units of blood, hemoglobin is currently 7.5. Hepatitis B, hepatitis A, hepatitis C serologies ar e negative. Bilirubin is 9.1, conjugated 3.1, unconjugated 6.0, AST is 149, ALT 62, alkaline phospha tase 98, albumin 2.4. TSH is 12. Sodium 139, potassium 5.8, chloride 104, bicarb 11, BUN 22, creati nine 2.9, calcium 7.0. Haptoglobin is currently pending. Reticulocyte count is pending. An abdominal ultrasound performed earlier today reveals hepatic steatosis. Portal vein is incomplete ly visualized. No evidence of biliary obstruction. Head CT done earlier today reveals no acute path ology. The patient's peripheral blood smear is reviewed. There are rare schistocytes visualized, multiple b urr cells, generalized hypochromasia. Normal appearing platelets. IMPRESSION: 1. Acute alcoholic hepatitis. 2. Hepatic failure secondary to #1. 3. Renal failure, possibly secondary to hepatorenal syndrome. 4. Coagulopathy secondary to #1. 5. Anemia. The patient is a 48-year-old gentleman who is admitted with a clinical picture that overall suggests acute alcoholic hepatitis with an associated coagulopathy. There is no evidence of a microangiopathi c process. I have personally reviewed his peripheral blood smear this evening and there is no signif icant increase in schistocytes and the overall clinical picture does not fit with a microangiopathic process such as TTP. I agree with sending a haptoglobin as has been done. He does not appear to have a hemolytic anemia. He certainly could have a component of chronic GI blood loss, though his stool hemoccults are curren tly negative. He appears to have a coagulopathy due to liver failure. His fibrinogen is low. I have given him a c ryoprecipitate this evening, 1 unit per 10 kg equals total of 8 units currently. I suggest repeating a DIC screen, including fibrinogen in the morning. He has responded favorably to 4 units of packed red cells. A CBC will be checked. Empiric steroid treatment in the form of methylprednisolone has been started for his acute alcoholic hepatitis. He has been started on CVVH. He is in the intensive care unit setting. Current plan is to transfuse as necessary. I recommend transfusing packed red cells to keep his hemo globin greater than 7 and a cryoprecipitate to keep his fibrinogen greater than 100. We will repeat his PT, INR, PTT tomorrow morning, though further FFP may not be of a great deal of benefit in light of what appears to be acute hepatic failure. He is not actively bleeding at the current time. Our service will continue to follow him. His overall prognosis appears somewhat poor when seen this evening. Plan at the current time is to continue ICU level care. Care plan was discussed with caty capone this evening. Total time for this evening's visit was approximately 65 minutes of which greater than 50% was spent in counseling and care coordination. /[id number]/MODL
[2018-12-25] MEDS ORDERED: VANCOMYCIN 1.5 GM in NS 250 ML IV ONE (23:30)
[2018-12-26] MEDS ORDERED: PIPERACILLIN/TAZO 3.375 GM/DEX 50 ML IV SCH
--- NOTE | 2018-12-26 01:00 | GPN ---
[f rep st] PROCEDURE NOTE Intensive care unit requested arterial line placement on the patient. The patient was on the ventila tor. On pressors. Ultrasound-guided 20-gauge A-line was placed with sterile technique. The artery was punctured once. Very small artery due to being on pressors. The hand was pink afterwards. No a pparent complications were noted. /[id number]/MODL
[2018-12-26] MEDS: [UNRECOGNIZED DRUG - OTHER] DIAL SCH (01:19)
[2018-12-26] MEDS: BGK 4/2.5 PRISMASATE 5,000 ML DIAL SCH (01:29)
[2018-12-26] MEDS: NS 1,000 ML MISC SCH (02:47)
[2018-12-26 03:03] VITALS: BP 34/21
[2018-12-26] MEDS ORDERED: LORazepam 2 MG/ML INJ IVP PRN (03:19)
[2018-12-26] MEDS: LORazepam 2 MG/ML INJ IVP SCH (03:23)
[2018-12-26] MEDS ORDERED: ATROPINE 1% 5 ML OPHT.BTL SL PRN (03:39)
--- NOTE | 2018-12-26 08:57 | HOSPPROG ---
Hospitalist Progress Note Assessment/Plan: Hospitalist night float note Patient admitted by myself yesterday early AM 12/25/2018 with severe anemia, what appeared to be alcoholic liver failure. Over course of the day patient had a rapid decline in status requiring CCRT, intubation and addition of 4 pressors. Discussed acute changes with the off going evening provider (see Dr. Humphrey' s progress note). Patient BPs continued to decline to SBP 50-60s without improvement despite 4 pressors. Antibiotics were added however by history at time of my admission patient did not complain of fevers/chills, abdominal pain or other potentially infectious symptoms. He remained afebrile during hospital course. Albumin was given slightly early with negligible improvement in BPs. approximately 0330 family requested that all supportive measures be removed. went to bedside and discussed with / family they desired discontinuation of CCRT, all pressors and that patient be extubated. "I don't want him to suffer anymore." Patient , mother and brother at bedside. Patient TOD declared (2 RN verified) 0865 12/26/18. Objective: Vital Signs Temp Pulse Resp BP Pulse Ox 33.4 C L 63 23 H 34/21 L 97 12/26/18 03:00 12/26/18 03:14 12/26/18 03:14 12/26/18 03:00 12/26/18 03:14 Laboratory Results 12/25/18 18:40 12/26/18 01:40 12/25/18 12/26/18 12/27/18 05:59 05:59 05:59 Intake Total 1525 3957.1 Output Total 80 Balance 1525 3877.1 PT 41.8 SEC (12.0-15.0) H 12/25/18 02:30 INR 4.71 (0.83-1.16) H 12/25/18 02:30 ICD10 Worksheet Patient Problems: Problems Problem Status Onset Anemia Acute Hepatic failure due to alcoholism Acute Seizure Acute
--- NOTE | 2018-12-26 09:23 | ASDISCHSUM ---
Discharge Information Plan Status: Medically Cleared to Leave: Discharge Date:12/26/2018 06:22 AM CM D/C Disposition: ADT D/C Disposition: Projected Discharge Date:12/26/2018 06:22 AM Transportation at D/C: Discharge Delay Reason: Follow-Up Date:12/26/2018 06:22 AM Discharge Slot: Final Diagnosis: Placement Information Patient Contact Information Contact Name:KENJI Relationship: Address:[address] City:[facility] Phone: State/Zip Code:[place] [address] Email: Financial Information Financial Class:BCOP Primary Plan Desc:[employer] Primary Plan Number:[id number] Secondary Plan Desc: Secondary Plan Number: Assessment Information [facility] CM Progress Note CM Note CM Note Notes: Pt is a 48 yo M presents with Hepatic failure, anemia, etoh withdrawl. Pt care discussed in rounds with MD and RN. Pt's is at bedside as well as other family members. Pt is going to OR to get dialysis cath, nephrology consulted and following. CM to follow as pt progresses. Plan: TBD Date Signed: 12/25/2018 03:17 PM Electronically Signed By:LIDYA Verma Intervention Information
--- NOTE | 2018-12-26 18:16 | PDDCSUM ---
Discharge Summary Discharge Summary: Date of Admission: 12/25/2018 Date of : 12/26/2018 Studies: cervical and head CT, abdominal US Procedures: endotracheal intubation, temporary hemodialysis line placement, central venous catheter placement, arterial line placement Consultants: anesthesiology tech, gastroenterology, nephrology, hematology Discharge Diagnoses: 1. Acute liver failure 2. Severe acute alcoholic hepatitis 3. Acute renal failure (likely HRS type 1) with hyperkalemia 4. Refractory hypotension/shock 5. Acute respiratory failure 6. Acute metabolic encephalopathy 7. Coagulopathy of liver disease 8. Macrocytic anemia 9. Thrombocytopenia 10. Anion gap metabolic acidosis 11. Seizure 12. H/o EtOH abuse Brief Hospital Course: 48yo M with h/o etoh abuse (reportedly cutting down per family) presented after having a seizure and being confused. He was found to be in acute liver failure with subsequent severe coagulopathy and encephalopathy. He was also in acute renal failure. The etiology of his liver failure was thought to be secondary to alcoholic hepatitis, which was very severe (Maddrey discriminant function score >140). He was treated with IV steroids. He was supported with blood products. Unfortunately, his condition worsened very quickly. He was intubated and started on CRRT. Hematology was consulted who did not think his clinical picture was consistent with MAHA/TTP or DIC but rather his hematologic abnormalities were due to liver failure. Overnight on 12/25, his blood pressure continued to decline. Antibiotics were added. He was on maximum vasopressor support but his physiology was not compatible with life and he passed early in the morning of 12/26. He with his and brother at his side.
[2018-12-28] MEDS ORDERED: THIAMINE HCL 100 MG TAB PO SCH (09:00)
== END 2018-12-26 06:22 | disposition expired | DRG 432 ==
LOC: EDUNIT# → F2N 04:38
PROVIDERS: ADMIT Family Medicine; ATTEND Family Medicine
PROC: 06HN33Z Insertion of Infusion Device into Left Femoral Vein, Percutaneous Approach (ICD-10-PCS; principal; 2018-12-25)
PROC: 06HM33Z Insertion of Infusion Device into Right Femoral Vein, Percutaneous Approach (ICD-10-PCS; principal; 2018-12-25)
PROC: 0BH17EZ Insertion of Endotracheal Airway into Trachea, Via Natural or Artificial Opening (ICD-10-PCS; 2018-12-25)
PROC: 5A1935Z Respiratory Ventilation, Less than 24 Consecutive Hours (ICD-10-PCS; 2018-12-25)
PROC: 30233L1 Transfusion of Nonautologous Fresh Plasma into Peripheral Vein, Percutaneous Approach (ICD-10-PCS; 2018-12-25)
PROC: 30233N1 Transfusion of Nonautologous Red Blood Cells into Peripheral Vein, Percutaneous Approach (ICD-10-PCS; 2018-12-25)
DX: K70.40 Alcoholic hepatic failure without coma (principal); J96.00 Acute respiratory failure, unspecified whether with hypoxia or hypercapnia; G93.41 Metabolic encephalopathy; N17.9 Acute kidney failure, unspecified; E87.2 Acidosis; F10.288 Alcohol dependence with other alcohol-induced disorder; F10.239 Alcohol dependence with withdrawal, unspecified; D68.4 Acquired coagulation factor deficiency; K70.10 Alcoholic hepatitis without ascites; D64.9 Anemia, unspecified; E86.9 Volume depletion, unspecified; E87.5 Hyperkalemia; R57.8 Other shock; I95.89 Other hypotension; I10 Essential (primary) hypertension; G40.909 Epilepsy, unspecified, not intractable, without status epilepticus; Z72.0 Tobacco use; D69.59 Other secondary thrombocytopenia
CPT/HCPCS: 83010-90; 85014-ER; 86644-90; 86645-90; 86664-90; 86665-90; G0472; G0480; J0610; J1265; J1815; J2060; J2250; J2370; J2543; J2920; J3010; J3370; J3411; J3430; J3475; J7510; P9012; P9016; P9017; P9047